=== PATIENT | female | born 1970 | race Caucasian/White ===

== ENCOUNTER 2018-05-25 09:48 | Outpatient (CLI) | payer BC, SELFPAY ==
--- NOTE | 2018-05-25 09:54 | DI.RAD_ITS ---
SYMPTOMS/DIAGNOSIS: COUGH X 3 WKS, UPPER RESPIRATORY INFECTION, J06.9 PA AND LATERAL CHEST: Comparison 05/19/17. The heart is normal in size. The lungs are clear. The mediastinal structures and pleura appear intact. CONCLUSION: Normal chest.
== END 2018-05-25 10:08 ==
PROVIDERS: PCP Nurse Practitioner; Visit Provider Family Medicine
DX: J06.9 Acute upper respiratory infection, unspecified (principal); R05 Cough
CPT/HCPCS: 71046

== ENCOUNTER 2018-05-25 09:55 | Outpatient (REF) | payer BC, SELFPAY | END 2018-05-25 10:15 | LOC: LBN 09:55 | PROVIDERS: PCP Nurse Practitioner; Visit Provider Nurse Practitioner | DX: J39.9 Disease of upper respiratory tract, unspecified (principal) | CPT/HCPCS: 87449 ==

== ENCOUNTER 2018-07-02 12:51 | Outpatient (CLI) | payer BC, SELFPAY ==
--- NOTE | 2018-07-02 10:00 | DI.RAD_ITS ---
SYMPTOM/DIAGNOSIS: SOB, COUGH, WHEEZE, R05, R06.2 PA AND LATERAL CHEST: Comparison is made with 05/25/18. The cardiac and mediastinal contours have a normal appearance. The lungs appear clear. No infiltrate, effusion or peribronchial thickening is seen. IMPRESSION: Negative chest xray.
== END 2018-07-02 13:11 ==
PROVIDERS: PCP Nurse Practitioner; Visit Provider Nurse Practitioner
DX: R06.02 Shortness of breath (principal); R05 Cough; R06.2 Wheezing
CPT/HCPCS: 71046

== ENCOUNTER 2018-11-12 00:59 | Outpatient (CLI) | payer BC, SELFPAY ==
--- NOTE | 2018-11-12 09:30 | DI.US_ITS ---
SYMPTOM/DIAGNOSIS: RUQ PAIN, R10.11 ABDOMEN ULTRASOUND: Routine examination was performed. The aorta is of normal caliber. The inferior vena cava is unremarkable. The liver is normal in size measuring 15 cm. in length. There is diffuse increased echogenicity of the liver consistent with fatty infiltration. No hepatic mass is seen. The gallbladder is unremarkable. There is no biliary ductal dilatation. The common duct measures .5 cm. The pancreas, spleen and kidneys show no acute abnormality. IMPRESSION: 1. Hepatic steatosis. 2. No evidence of cholelithiasis or biliary ductal dilatation.
[2018-11-12 10:40] LABS: Hemoglobin A1C 5.7 % (4.5-6.2)
[2018-11-12 11:13] LABS: ALT 36 U/L (12-78); AST 20 U/L (15-37); Albumin 3.9 g/dL (3.4-5.0); Alkaline Phosphatase 104 U/L (46-116); Anion Gap 12.5 mmol/L (3-11); BUN 11 mg/dL (7-18); Bilirubin, Total 0.3 mg/dL (0.2-1.0); CO2 25.5 mmol/L (21.0-32.0); CREATININE 0.77 mg/dL (0.55-1.02); Calcium 9.2 mg/dL (8.5-10.1); Calculated LDL 153 mg/dL; Chloride 103 mmol/L (98-107); Cholesterol 235 mg/dL (50-200); Glucose 102 mg/dL (70-100); HDL Cholesterol 57 mg/dL (40-60); Potassium 4.4 mmol/L (3.5-5.1); Sodium 141 mmol/L (136-145); Total Protein 7.4 g/dL (6.4-8.2); Triglyceride 128 mg/dL (30-150)
== END 2018-11-12 01:19 ==
PROVIDERS: PCP Nurse Practitioner; Visit Provider Nurse Practitioner
DX: R10.11 Right upper quadrant pain (principal); E66.9 Obesity, unspecified; R73.01 Impaired fasting glucose; K76.0 Fatty (change of) liver, not elsewhere classified
CPT/HCPCS: 36415; 80053; 80061; 83721; 76700; 83036

== ENCOUNTER 2019-02-15 01:07 | Outpatient (CLI) | payer BC, SELFPAY ==
--- NOTE | 2019-02-15 09:30 | DI.US_ITS ---
APPROVED REPORT EXAM: Comprehensive 2D, Doppler, and color-flow Echocardiogram Patient Location: Out-Patient Indications: SOB, Trigeminy, Arrhythmia Left Ventricle The left ventricle is normal size. The left ventricular systolic function is normal. The left ventric ular ejection fraction is within the normal range. There is normal left ventricular wall thickness. T here is normal LV segmental wall motion. The left ventricular diastolic function is normal. LVEF is 5 0-55%. Right Ventricle The right ventricle is normal size. The right ventricular systolic function is normal. Atria The left atrium size is normal. The right atrium size is normal. Aortic Valve Aortic valve is grossly normal in structure. Aortic valve is trileaflet. There is no aortic valvular stenosis. No aortic regurgitation is present. Mitral Valve The mitral valve is normal in structure. No evidence of mitral valve stenosis. Trace mitral regurgita tion. Tricuspid Valve The tricuspid valve is normal in structure. Mild tricuspid regurgitation. Pulmonic Valve Pulmonic valve is not well visualized. Trace pulmonic regurgitation. Great Vessels The aortic root is normal in size. The IVC is normal in size and collapses >50% with inspiration. RVS P is within normal limits Pericardium There is no pericardial effusion. There is no pleural effusion. 2D Dimensions IVSd 0.9 cm F: 0.6-1.0 PWd 0.9 cm F: 0.6 - 1.0 LVDd 4.1 cm F: 3.9 - 5.3 LVDs 3.1 cm F: 2.2 - 3.5 Aortic Root 3.0 cm F: 2.7 - 3.3 Left Atrium 3.0 cm F: 2.7 - 3.8 LVOT 2.0 cm (M/F) 1.5-2.5 Ascending Aorta 2.8 cm F: 2.3 - 3.1 LVEF (Jara's) 51.3 % F: 54 - 74 LV Volume 75.3 mL F: 46 - 106 LV Volume Index 41.3 mL/m2 F: 29 - 61 FS 23.4 % LV Diastology E Decel Time 178.0 (160-240 msec) E/A Ratio 1.3 MED E' 0.1 (<0.07 m/s) LV E/e MED 13.6 (>14) LAT E' 0.1 (<0.1 m/s) LV E/e LAT 7.1 (>14) Aortic Valve LVOT Area 3.0 cm2 LVOT Peak Celso. 1.0 m/s LVOT Mean Celso. 0.6 m/s LVOT Peak Gr. 4.0 mmHg LVOT Mean Gr. 2.0 mmHg LVOT VTI 0.2 m AoV Peak Celso. 1.4 (0.5-1.3 m/s) AoV Mean Celso. 0.9 m/s AO Peak GR. 7.4 mmHg AO Mean GR. 3.8 (<5 mmHg) AO VTI 0.3 (0.18-0.25 m) LEIDY (VTI) 2.3 (2.5-4.5 cm2) Mitral Valve MV E Max Celso. 0.9 (0.4-1.3 m/s) MV A Velocity 0.7 (0.4-1.3 m/s) E/A Ratio 1.4 MV Decel. Time 178.2 (160-240 msec) MV PHT 51.7 msec MVA PHT 4.3 cm2 Pulmonary Valve PV Peak Velocity 0.8 (0.5-1.5 m/s) Tricuspid Valve TR P. Velocity 2.4 m/s TR P. Gradient 22.6 mmHg Conclusion Left Ventricle : The left ventricle is normal size. There is normal left ventricular wall thickness. There is normal LV segmental wall motion. LVEF is 50-55%. There is normal diastolic function. Right Ventricle : The right ventricle is normal size. Atria : The left atrium size is normal. The right atrium size is normal. Aortic Valve : Aortic valve is grossly normal in structure. Aortic valve is trileaflet. No aortic reg urgitation is present. There is no aortic valvular stenosis. Mitral Valve : The mitral valve is normal in structure. Trace mitral regurgitation. No evidence of mi tral valve stenosis. Tricuspid Valve : Mild tricuspid regurgitation. The tricuspid valve is normal in structure. Pulmonic Valve : Pulmonic valve is not well visualized. Trace pulmonic regurgitation. Great Vessels : The IVC is normal in size and collapses >50% with inspiration. There is no prior echo available for comparison
== END 2019-02-15 01:27 ==
PROVIDERS: PCP Nurse Practitioner; Visit Provider Nurse Practitioner
DX: R06.02 Shortness of breath (principal); I49.9 Cardiac arrhythmia, unspecified; R00.2 Palpitations
CPT/HCPCS: 93306

== ENCOUNTER 2019-11-10 01:47 | Outpatient (CLI) | payer SELFPAY ==
--- NOTE | 2019-11-10 07:45 | DI.RAD_ITS ---
EXAM: XR KNEE RT 4V AP,LAT,LAUREN,PAT CLINICAL HISTORY: Right knee pain for 1.5 weeks. No injury., M25.561. TECHNIQUE: 2D digital imaging was performed. COMPARISON: No exams were available for comparison FINDINGS: BONES: No acute fracture is present. No bony destructive lesion is seen. JOINTS: There is mild narrowing of the patellofemoral joint. There is mild periarticular spurring, g reatest at the lateral patellofemoral joint. No joint effusion is seen. SOFT TISSUE: Normal. IMPRESSION: Mild degenerative changes, greatest of the lateral patellofemoral joint.. DATA REPOSITORY: RADIATION DOSE DELIVERED:
== END 2019-11-10 02:07 ==
PROVIDERS: PCP Nurse Practitioner; Visit Provider Nurse Practitioner
DX: M25.561 Pain in right knee (principal); M22.2X1 Patellofemoral disorders, right knee
CPT/HCPCS: 73564

== ENCOUNTER 2019-11-18 11:28 | Outpatient (REF) | payer SELFPAY ==
--- NOTE | 2019-11-18 11:00 | PAPFT_PTH ---
PATIENT: Layla Ramirez LOC: [facility] U#:[id number] AGE/SX: 49/F ROOM: RE11/18/[address]: RENÉ Herrera : 1970 BED: DIS: 11/18/2019 SPEC #: [id number] RECD: 11/18/19 12:38 STATUS: ABAD REJia #: [id number] SHEA: 11/18/19 11:[address]: Ambika Marte DEPT: [facility] Cytology RECD BY: Ketty Berry ENTERED: 11/18/19 12:38 SP TYPE: PAPFT OT DR: Cayla Oliva APRN Tissues: 1 - CX/ENDOCX FOR PAP SMEARS Procedures: PAP THIN PREP/UVM Screening HPV DNA PROBE Comments: [id number]
== END 2019-11-18 11:48 ==
LOC: LBN 11:28
PROVIDERS: PCP Nurse Practitioner; Visit Provider Nurse Practitioner Family
DX: Z12.4 Encounter for screening for malignant neoplasm of cervix (principal); Z11.51 Encounter for screening for human papillomavirus (HPV)
CPT/HCPCS: 88142; 87624

== ENCOUNTER 2023-02-17 11:47 | Outpatient (REF) | payer MEDICAID, SELFPAY ==
--- NOTE | 2023-02-17 11:25 | PAPFT_PTH ---
PATIENT: Layla Ramirez LOC: [facility] U#:[id number] AGE/SX: 52/F ROOM: RE02/17/[address]: Emmie Chris NP : 1970 BED: DIS: 02/17/2023 SPEC #: [id number] RECD: 02/17/23 13:01 STATUS: ABAD REJia #: [id number] SHEA: 02/17/23 11:[address]: Aries DOUGLAS,Emmie DEPT: [facility] Cytology RECD BY: Ketty Berry ENTERED: 02/17/23 13:01 SP TYPE: PAPFT OT DR: Unknown,Unknown Tissues: 1 - CX/ENDOCX FOR PAP SMEARS Procedures: PAP THIN PREP/UVM Screening HPV DNA PROBE Comments: [id number]
== END 2023-02-17 11:48 | disposition home or self-care (01) ==
LOC: LBN 11:47
PROVIDERS: Visit Provider Nurse Practitioner Women's Health
DX: Z12.4 Encounter for screening for malignant neoplasm of cervix (principal); Z11.51 Encounter for screening for human papillomavirus (HPV)
CPT/HCPCS: 88142; 87624

== ENCOUNTER → 2023-03-05 12:23 | Outpatient (CLI) | payer MEDICAID, SELFPAY ==
--- NOTE | 2023-03-05 13:00 | DI.MAMMO_ITS ---
Exam(s) MAMMO SCREENING EXAM: MAMMO SCREENING CLINICAL HISTORY: screening TECHNIQUE: Mammograms were interpreted according to the usual protocol including computer analysis w [employer] CAD system, tomosynthesis and C-view imaging. COMPARISON: 2013 through 2016 FINDINGS: The breasts are composed of mainly fatty density , Breast Density category A. No suspicious masses or suspicious microcalcifications are seen. No skin thickening or abnormal axillary lymph nodes are seen. There has been no significant change from prior exams. IMPRESSION: BI-RADS Category 1, Negative mammogram Yearly screening mammography is recommended. Breast Density - Category A, fatty density. A negative radiographic report should not delay biopsy if a dominant or clinically suspicious mass is present. Up to ten percent of cancers are not identified on mammography. A negative report may reinforce clinical impression. Adenosis and dense breasts may obscure an underlying neoplasm. False positive reports average 6 to 10%. Patient will receive a letter notifying them of these results.
== END ==
PROVIDERS: Visit Provider Nurse Practitioner Women's Health
DX: Z12.31 Encounter for screening mammogram for malignant neoplasm of breast (principal); R92.313 Mammographic fatty tissue density, bilateral breasts
CPT/HCPCS: 77063; 77067

== ENCOUNTER 2023-05-15 03:23 | Outpatient (CLI) | payer MEDICAID, SELFPAY ==
[2023-05-15 09:55] LABS: Hemoglobin A1C 5.5 % (<5.7)
[2023-05-15 10:04] LABS: ALT 40 U/L (14-59); AST 20 U/L (15-37); Albumin 3.8 g/dL (3.4-5.0); Alkaline Phosphatase 88 U/L (46-116); Anion Gap 6.5 mmol/L (3-11); BUN 14 mg/dL (7-18); Bilirubin, Total 0.5 mg/dL (0.2-1.0); CO2 29.5 mmol/L (21.0-32.0); CREATININE 0.9 mg/dL (0.55-1.02); Calcium 9.5 mg/dL (8.5-10.1); Calculated LDL 142 mg/dL (<100); Chloride 103 mmol/L (98-107); Cholesterol 223 mg/dL (<200); Glucose 113 mg/dL (74-106); HDL Cholesterol 58 mg/dL (40-60); Potassium 3.9 mmol/L (3.5-5.1); Sodium 139 mmol/L (136-145); TSH (W/Ref FT4) 2.31 uIU/mL (0.36-3.74); Total Protein 7.8 g/dL (6.4-8.2); Triglyceride 119 mg/dL (<150)
== END 2023-05-15 03:24 | disposition home or self-care (01) ==
LOC: LBO 03:23
PROVIDERS: PCP Nurse Practitioner Family; Visit Provider Nurse Practitioner Family
DX: Z76.89 Persons encountering health services in other specified circumstances (principal)
CPT/HCPCS: 36415; 80053; 80061; 83036; 84443

== ENCOUNTER 2024-03-18 01:09 | Outpatient (CLI) | payer MEDICAID, SELFPAY ==
--- NOTE | 2024-03-18 | DI.MAMMO_ITS ---
Exam(s) MAMMO SCREENING EXAM: MAMMO SCREENING CLINICAL HISTORY: SCREENING, Z12.39 TECHNIQUE: Mammograms were interpreted according to the usual protocol including computer analysis w [employer] CAD system, tomosynthesis and C-view imaging. COMPARISON: 2016 through 2022 FINDINGS: The breasts are composed of mainly fatty density , Breast Density category A. No suspicious masses or suspicious microcalcifications are seen. No skin thickening or abnormal axillary lymph nodes are seen. There has been no significant change from prior exams. IMPRESSION: BI-RADS Category 1, Negative mammogram Yearly screening mammography is recommended. Breast Density - Category A, fatty density. A negative radiographic report should not delay biopsy if a dominant or clinically suspicious mass is present. Up to ten percent of cancers are not identified on mammography. A negative report may reinforce clinical impression. Adenosis and dense breasts may obscure an underlying neoplasm. False positive reports average 6 to 10%. Patient will receive a letter notifying them of these results.
== END 2024-03-18 01:29 ==
LOC: DI 01:09
PROVIDERS: PCP Nurse Practitioner Family; Visit Provider Nurse Practitioner Women's Health
DX: Z12.31 Encounter for screening mammogram for malignant neoplasm of breast (principal); R92.313 Mammographic fatty tissue density, bilateral breasts
CPT/HCPCS: 77063; 77067; 87070; 87205

== ENCOUNTER 2024-03-18 22:30 | Outpatient (REF) | payer MEDICAID, SELFPAY | END 2024-03-18 22:31 | disposition home or self-care (01) | LOC: LBN 22:30 | PROVIDERS: PCP Nurse Practitioner Family; Visit Provider Physician Assistant Medical | DX: L02.416 Cutaneous abscess of left lower limb (principal) | CPT/HCPCS: 87070; 87205 ==

== ENCOUNTER 2024-04-20 06:06 | Day surgery (SDC) | payer MEDICAID, SELFPAY ==
[2024-04-20 06:15] VITALS: BP 131/80; PULSE 87; RESP 17; TEMP 36.7; O2SAT 95
--- NOTE | 2024-04-20 06:54 | ANES.PREOP_ITS ---
General Info Date of Service Date Performed: 04/20/24 Height: 4 ft 11.5 in Weight: 91.7 kg Body Mass Index (BMI): 40.1 Surgical Procedure: Operation Date: 04/20/24 07:40 Proposed Procedure Side Surgeon p Wrist ECTR Left Darin Laurent MD Meds Allergies and Home Medications Allergies Allergy/AdvReac Type Severity Reaction Status Date / Time latex Allergy Severe Swelling/Ed Verified 04/20/24 06:37 erasto mirtazapine AdvReac Intermediate Pt not sure Verified 04/20/24 06:37 tetracycline AdvReac Intermediate GI Upset Verified 04/20/24 06:37 Home Medication ?Medication ?Instructions ?Recorded multivitamin (Daily Multiple 1 ea PO DAILY 07/11/16 tablet) cholecalciferol (vitamin D3) 10 See Rx Instructions PO DAILY 07/10/18 mcg (400 unit) capsule (Vitamin D3) sodium chloride 3 % nasal mist 1 spray intranasal DAILY 08/23/21 (Saline Nasal Mist) [id number]-[id number] C 250 1 tab PO DIRECTED 02/17/23 mg-herbal no.124 8.875 mg chewable tablet (Airborne (ascorbic acid)) albuterol sulfate 90 mcg/actuation 2 puff inhalation Q6H PRN 03/06/23 aerosol inhaler shortness of breath or wheezing #6.7 grams inhalational spacing device #1 ea 03/06/23 (Aerochamber MV spacer) phentermine 3.75 mg-topiramate ER 1 cap PO DAILY #14 caps 07/07/23 23 mg capsule,ext.release 24hr mphas phentermine 7.5 mg-topiramate ER 1 cap PO DAILY #90 caps 07/07/23 46 mg capsule,ext.release 24hr mphase fluticasone propionate 50 2 spray NS DAILY #18.2 mL 07/09/23 mcg/actuation nasal spray,suspension (Flonase Allergy Relief) loratadine 10 mg tablet 10 mg PO DAILY #90 tabs 07/09/23 valacyclovir 1 gram tablet 2,000 mg (2 x 1 gram) PO BID #20 07/09/23 tabs betamethasone dipropionate 0.05 % 1 applic topical DAILY PRN skin 12/31/23 topical cream irritation #45 grams cyclobenzaprine 5 mg tablet 5 - 10 mg (1 - 2 x 5 mg) PO TID 03/05/24 PRN pain #60 tabs triamcinolone acetonide 0.1 % 1 applic topical BID PRN eczema 03/09/24 topical cream hands #454 grams Current Visit Medications: Current Medications Generic Name Dose Route Start Last Admin Trade Name Robinson PRN Reason Stop Dose Admin Cefazolin Sodium/Dextrose 2 gm in 50 mls @ 100 mls/hr 04/20/24 06:00 Ancef Duplex IVPB 05/19/24 23:59 PREOP MARSHALL IV Miscellaneous Supplies 1 each 04/20/24 06:00 Iv Access IV 05/19/24 23:59 DIRECTED MARSHALL Sodium Chloride 0 ml 04/20/24 06:00 Normal Saline Flush 10 Ml Syr IV 05/19/24 23:59 PRN PRN Sodium Chloride 0 ml 04/20/24 06:00 Normal Saline 10 Ml Vial IJ 05/19/24 23:59 DIRECTED PRN Sterile Water 0 ml 04/20/24 06:00 Water,Injection,Sterile 10 Ml Vial IJ 05/19/24 23:59 DIRECTED PRN PFSH Active Problems Active Problems: Problem Status Onset Code Left carpal tunnel syndrome Acute G56.02 Hyperlipidemia Chronic E78.5 Bilateral carpal tunnel syndrome Chronic G56.03 Allergic rhinitis Chronic J30.9 Chronic sinusitis Chronic J32.9 Atopic dermatitis Chronic L20.9 Obesity (BMI 30-39.9) Chronic E66.9 Medical History Medical History Prediabetes Premature menopause 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[facility] [place] Surgical History Surgical History History of carpal tunnel surgery of right wrist (~2020) S/P appendectomy (12/06/15) Tobacco Smoking/Tobacco Use Status: Never Passive smoking exposure: No Alcohol Alcohol Intake: current Alcohol intake frequency: a few times a month Alcohol type: beer and wine Substance Use Substance use: Never Substance use type: does not use Prental History History Para 2 Hx # Term Pregnancies Multiple births Hx # Pregnancies Ectopic pregnancies AB induced Hx Number of Living Children AB spontaneous Vital Signs and Lab Results Vital Signs Most Recent Vital Signs in EMR: Most Recent Vital Signs Temp Pulse Resp BP Pulse Ox 36.7 C 87 17 131/80 95 04/20/24 06:15 04/20/24 06:15 04/20/24 06:15 04/20/24 06:15 04/20/24 06:15 Lab Results Blood Type / Crossmatch: 2 No Data to Display Complete Blood Count: No Data to Display Complete Metabolic Panel: No Data to Display Liver Function Panel: No Data to Display Coagulation Panel: No Data to Display Cardiac Panel: No Data to Display Arterial Blood Gas: No Data to Display Venous Blood Gas: No Data to Display Pancreas Panel: No Data to Display Thyroid Panel: No Data to Display Infectious Disease: No Data to Display Blood Cultures: No Data to Display Toxicology Panel: No Data to Display Panel: No Data to Display Anesthesia Assessment and Plan Anesthesia History Personal History: No History of Anesthesia Complications Family History: No Family History of Anesthesia Complications Exercise Tolerance Exercise Tolerance: Metabolic Equivalents>4 Pertinent Negatives Pertinent Negatives: No Symptoms of GERD Cardiac & Pulmonary Exam Cardiac Exam: Normal S1/S2 Heart Sounds Pulmonary Exam: Clear Bilateral Breath Sounds Implantable Cardiac Device Does patient have a Pacemaker or an ICD?: No Airway Exam Known Difficult Airway: No Mallampati Class: 3 Mouth Opening: Normal (> 3cm) Thyromental Distance: Greater than 3 cm Neck Range of Motion: Full ROM Neck Circumference: Thick Teeth Condition: Normal Dentition ASA Classification ASA Score: ASA 2 Emergency Case?: No NPO Status NPO Status: NPO Clears >2 hours, Solids >8 hours Status Status: Not Relevant due to Medical History Anesthesia Plan Resuscitation Status: Full Code Anesthesia Technique: General Anesthesia Airway Planned: Natural Airway Monitors Used: Standard Monitors
[2024-04-20 06:55] VITALS: BMI 40.1
[2024-04-20] MEDS: Normal Saline Flush 10 ML SYR IV (07:10)
--- NOTE | 2024-04-20 07:15 | HPE_ITS ---
Assessment and Plan Assessment and plan (1) Left carpal tunnel syndrome: Status: Acute Assessment and plan: Layla is a 53-year-old female who is here today for her left carpal tunnel syndrome. I discussed the risks of the procedure to include, but not limited to, bleeding, infection, palmar pain, stiffness, damage to nerves, damage to vessels, damage to tendons, weakness, recurrence, and incomplete release. Given these risks, Layla desires to proceed. Once again, we will monitor swelling in her fingers closely. I reviewed with her signs and symptoms of increasing congestion about the fingers from the rings. If there is any concern all these rings need to be cut immediately and the emergency department. I did offer to cut those rings today but she prefers to watch the symptoms after surgery rather than remove the rings today. History of Present Illness History of Present Illness Chief Complaint: Left Carpal Tunnel Syndrome Narra tive: Layla is a 53-year-old female who has carpal tunnel syndrome about the left side. She is status post right carpal tunnel release with good results. She continues have numbness and tingling and pain about the left side. She denies any changes to her medical history. As a note, she is unable to remove rings from her left hand. These are quite sentimental to her. There is room around the rings but multiple attempts were tried to remove these rings today but unsuccessful. I discussed options with her of cutting the rings now or being very vigilant and observe for any signs of increased swelling within the digits. Review of Systems All systems reviewed & are unremarkable except as noted in HPI and below PFSH All Active Problems Left carpal tunnel syndrome (Acute) Hyperlipidemia (Chronic) Bilateral carpal tunnel syndrome (Chronic) Allergic rhinitis (Chronic) Chronic sinusitis (Chronic) Atopic dermatitis (Chronic) Obesity (BMI 30-39.9) (Chronic) Medical History Prediabetes Premature menopause 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[facility] [place] Insomnia Surgical History History of carpal tunnel surgery of right wrist (~2020) S/P appendectomy (12/06/15) Family History Mother Asthma Father , 77 from lung cancer COPD (chronic obstructive pulmonary disease) Lung cancer Sister Asthma Sister No problems noted. Brother Asthma Son No problems noted. Daughter No problems noted. Maternal Grandfather No problems noted. Maternal Grandmother No problems noted. Paternal Grandfather No problems noted. Paternal Grandmother Diabetes Social History Smoking/Tobacco Use Status: Never Smoking risk assessment performed?: Yes Alcohol Intake: current Alcohol Intake frequency: a few times a month Alcohol type: beer and wine Drug use: Never Substance use type: does not use Adopted: No Caregiver/Support person: No Foster care: No Household members: spouse Housing: house Number of Children: 2 number of grandchildren: 5 Communication Needs: None Education Level: high school current occupation: homemaker Pets and animals: No Sexually active: Yes Do you think of yourself as: straight/heterosexual Current gender identity: female What is your relationship status?: How often do you attend synagogue or presybeterian services?: 1-3 times per year Do you belong to any clubs or organized social groups?: no Panel score (0-1 are the most socially isolated patients): 1 What type of physical activity do you participate in: regular exercise, swimming and other Details: volleyball Duration: > 90 minutes/day Frequency: 1-2 times per week Tiffanie/Tenriism: Non baptism Special tiffanie needs: No Agree to transfusion: Yes Seatbelt use: always Drive intox or ride w/intox motorcycle delivery driver: No Working smoke detector in home: Yes Carbon monox detector in home: Yes Firearms in home: No Do you feel safe at home: Yes Do you feel safe in your relationship?: Yes Victim of physical abuse: No Victim of emotional abuse: No Victim of sexual abuse: No Female Reproductive History Menstrual Menopause type: natural History History Para 2 Hx # Term Pregnancies Multiple births Hx # Pregnancies Ectopic pregnancies AB induced Hx Number of Living Children AB spontaneous Meds Allergies and Home Medications Allergies Allergy/AdvReac Type Severity Reaction Status Date / Time latex Allergy Severe Swelling/Ed Verified 04/20/24 06:37 erasto mirtazapine AdvReac Intermediate Pt not sure Verified 04/20/24 06:37 tetracycline AdvReac Intermediate GI Upset Verified 04/20/24 06:37 Home Medications ?Medication ?Instructions ?Recorded ?Confirmed ?Type multivitamin (Daily Multiple 1 ea PO DAILY 07/11/16 04/20/24 History tablet) cholecalciferol (vitamin D3) 10 See Rx Instructions PO DAILY 07/10/18 04/20/24 History mcg (400 unit) capsule (Vitamin D3) sodium chloride 3 % nasal mist 1 spray intranasal DAILY 08/23/21 04/20/24 History (Saline Nasal Mist) wygiypwn-pawnwnha-ejz C 250 1 tab PO DIRECTED 02/17/23 04/20/24 History mg-herbal no.124 8.875 mg chewable tablet (Airborne (ascorbic acid)) albuterol sulfate 90 mcg/actuation 2 puff inhalation Q6H PRN 03/06/23 04/20/24 Rx aerosol inhaler shortness of breath or wheezing #6.7 grams inhalational spacing device #1 ea 03/06/23 03/09/24 Rx (Aerochamber MV spacer) phentermine 3.75 mg-topiramate ER 1 cap PO DAILY #14 caps 07/07/23 04/20/24 Rx 23 mg capsule,ext.release 24hr mphas phentermine 7.5 mg-topiramate ER 1 cap PO DAILY #90 caps 07/07/23 04/20/24 Rx 46 mg capsule,ext.release 24hr mphase fluticasone propionate 50 2 spray NS DAILY #18.2 mL 07/09/23 04/20/24 Rx mcg/actuation nasal spray,suspension (Flonase Allergy Relief) loratadine 10 mg tablet 10 mg PO DAILY #90 tabs 07/09/23 04/20/24 Rx valacyclovir 1 gram tablet 2,000 mg (2 x 1 gram) PO BID #20 07/09/23 04/20/24 Rx tabs betamethasone dipropionate 0.05 % 1 applic topical DAILY PRN skin 12/31/23 04/20/24 Rx topical cream irritation #45 grams cyclobenzaprine 5 mg tablet 5 - 10 mg (1 - 2 x 5 mg) PO TID 03/05/24 04/20/24 Rx PRN pain #60 tabs triamcinolone acetonide 0.1 % 1 applic topical BID PRN eczema 03/09/24 04/20/24 Rx topical cream hands #454 grams hydrocodone 5 mg-acetaminophen 325 1 tab PO Q6H PRN severe pain #4 04/20/24 Rx mg tablet tabs Exam Const General: cooperative, healthy appearing, comfortable and no acute distress Resp Effort & Inspection: normal respiratory effort Auscultation: clear to auscultation bilaterally Cardio Rate: regular rate Rhythm: regular rhythm Results Last Vital Signs Temp 36.7 C 04/20/24 06:15 Pulse 87 04/20/24 06:15 Resp 17 04/20/24 06:15 BP 131/80 04/20/24 06:15 Pulse Ox 95 04/20/24 06:15
--- NOTE | 2024-04-20 07:16 | PDOC.DSDIS_ITS ---
Date of service: 04/20/24 Discharge Plan Disposition Patient Disposition: Home Condition: Good Discharge Details Reason For Visit: Left carpal tunnel syndrome Attending Provider: Darin Laurent Primary Care Provider: Liliane Castellanos Home Meds and New Rx's Prescriptions: New hydrocodone-acetaminophen 5-325 mg tablet 1 tab PO Q6H PRN (Reason: severe pain) Qty: 4 0RF Rx Instructions: Take one tablet up to every 6 hours as needed for severe postoperative pain Continued Saline Nasal Mist 3 % mist 1 spray intranasal DAILY Airborne (ascorbic acid) 250-8.875 mg tablet,chewable 1 tab PO DIRECTED albuterol sulfate 90 mcg/actuation HFA aerosol inhaler 2 puff inhalation Q6H PRN (Reason: shortness of breath or wheezing) Qty: 6.7 0RF (DME) Aerochamber MV Spacer See Rx Instructions .Route Qty: 1 0RF Rx Instructions: As directed phentermine-topiramate 3.75-23 mg capsule, ER multiphase 24 hr 1 cap PO DAILY Qty: 14 0RF Patient Comments: Has not started this Rx yet 04/19/24 Rx Instructions: 1 pill daily for 14 days then switch to the higher dose phentermine-topiramate 7.5-46 mg capsule, ER multiphase 24 hr 1 cap PO DAILY Qty: 90 0RF Patient Comments: Has not started this RX yet 04/19/24 betamethasone dipropionate 0.05 % cream 1 applic topical DAILY PRN (Reason: skin irritation) Qty: 45 0RF triamcinolone acetonide 0.1 % cream 1 applic Topical BID PRN (Reason: eczema hands) Qty: 454 1RF cyclobenzaprine 5 mg tablet 5 - 10 mg PO TID PRN (Reason: pain) Qty: 60 0RF Rx Instructions: Take 1 to 2 tablets by mouth three times a day as needed for pain multivitamin [Daily Multiple] 1 EACH tablet 1 ea PO DAILY cholecalciferol (vitamin D3) [Vitamin D3] 400 unit capsule See Rx Instructions PO DAILY Patient Comments: 1,000mg PO DAILY; Rx Instructions: 1,000mg PO DAILY; fluticasone propionate [Flonase Allergy Relief] 50 mcg/actuation spray,suspension 2 spray NS DAILY Qty: 18.2 12RF loratadine 10 mg tablet 10 mg PO DAILY Qty: 90 3RF valacyclovir 1 gram tablet 2,000 mg PO BID Qty: 20 2RF Rx Instructions: 2 tabs BID for one day, PRN for cold sores Discharge Instructions Stand Alone Forms: Mehran Bagley Tunnel Release Referrals: Darin Laurent MD [ [facility] STAFF PHYSICIAN] - Activity:: Elevate Remove Dressings/Wound Care:: 48 hours Shower/Bathe:: 48 hours Diet:: As Tolerated Discharge Orders Discharge Orders: Discharge Order (Routine); Ordered 04/20/24 Ordered By: Mell Yuen
[2024-04-20] MEDS: ceFAZolin 2 GM/50 ML BAG IVPB (07:29)
[2024-04-20 07:45] VITALS: BP 119/79; PULSE 96; RESP 17; TEMP 36; O2SAT 93
[2024-04-20] MEDS: Lidocaine 1% Multi-Dose W/EPI 1/100,000 50 ML VIAL (07:51)
--- NOTE | 2024-04-20 07:59 | ANES.PREOP_ITS ---
General Info Date of Service Date Performed: 04/20/24 Height: 4 ft 11.5 in Weight: 91.7 kg Body Mass Index (BMI): 40.1 Surgical Procedure: Operation Date: 04/20/24 07:40 Proposed Procedure Side Surgeon p Wrist ECTR Left Darin Laurent MD Meds Allergies and Home Medications Allergies Allergy/AdvReac Type Severity Reaction Status Date / Time latex Allergy Severe Swelling/Ed Verified 04/20/24 06:37 erasto mirtazapine AdvReac Intermediate Pt not sure Verified 04/20/24 06:37 tetracycline AdvReac Intermediate GI Upset Verified 04/20/24 06:37 Home Medication ?Medication ?Instructions ?Recorded multivitamin (Daily Multiple 1 ea PO DAILY 07/11/16 tablet) cholecalciferol (vitamin D3) 10 See Rx Instructions PO DAILY 07/10/18 mcg (400 unit) capsule (Vitamin D3) sodium chloride 3 % nasal mist 1 spray intranasal DAILY 08/23/21 (Saline Nasal Mist) [id number] C 250 1 tab PO DIRECTED 02/17/23 mg-herbal no.124 8.875 mg chewable tablet (Airborne (ascorbic acid)) albuterol sulfate 90 mcg/actuation 2 puff inhalation Q6H PRN 03/06/23 aerosol inhaler shortness of breath or wheezing #6.7 grams inhalational spacing device #1 ea 03/06/23 (Aerochamber MV spacer) phentermine 3.75 mg-topiramate ER 1 cap PO DAILY #14 caps 07/07/23 23 mg capsule,ext.release 24hr mphas phentermine 7.5 mg-topiramate ER 1 cap PO DAILY #90 caps 07/07/23 46 mg capsule,ext.release 24hr mphase fluticasone propionate 50 2 spray NS DAILY #18.2 mL 07/09/23 mcg/actuation nasal spray,suspension (Flonase Allergy Relief) loratadine 10 mg tablet 10 mg PO DAILY #90 tabs 07/09/23 valacyclovir 1 gram tablet 2,000 mg (2 x 1 gram) PO BID #20 07/09/23 tabs betamethasone dipropionate 0.05 % 1 applic topical DAILY PRN skin 12/31/23 topical cream irritation #45 grams cyclobenzaprine 5 mg tablet 5 - 10 mg (1 - 2 x 5 mg) PO TID 03/05/24 PRN pain #60 tabs triamcinolone acetonide 0.1 % 1 applic topical BID PRN eczema 03/09/24 topical cream hands #454 grams hydrocodone 5 mg-acetaminophen 325 1 tab PO Q6H PRN severe pain #4 04/20/24 mg tablet tabs Current Visit Medications: Current Medications Generic Name Dose Route Start Last Admin Trade Name Freq PRN Reason Stop Dose Admin Acetaminophen 650 mg 04/20/24 07:14 Acetaminophen 325 Mg Tab PO 05/20/24 07:13 Q4H PRN PRN Acetaminophen 650 mg 04/20/24 07:15 Acetaminophen 325 Mg Tab PO 05/20/24 07:14 Q4H PRN PRN Hydrocodone Bitart/Acetaminophen 0 tab 04/20/24 07:14 Hydrocodone 5/Acetaminophen 325 Tab PO 05/20/24 07:13 Q3H PRN PRN Pain Hydrocodone Bitart/Acetaminophen 0 tab 04/20/24 07:15 Hydrocodone 5/Acetaminophen 325 Tab PO 05/20/24 07:14 Q3H PRN PRN Pain Cefazolin Sodium/Dextrose 2 gm in 50 mls @ 100 mls/hr 04/20/24 06:00 04/20/24 07:40 Ancef Duplex IVPB 05/19/24 23:59 Infused PREOP MARSHALL Infusion IV Miscellaneous Supplies 1 each 04/20/24 06:00 Iv Access IV 05/19/24 23:59 DIRECTED MARSHALL Sodium Chloride 0 ml 04/20/24 06:00 04/20/24 07:10 Normal Saline Flush 10 Ml Syr IV 05/19/24 23:59 10 ml PRN PRN Administration Sodium Chloride 0 ml 04/20/24 06:00 Normal Saline 10 Ml Vial IJ 05/19/24 23:59 DIRECTED PRN Sterile Water 0 ml 04/20/24 06:00 Water,Injection,Sterile 10 Ml Vial IJ 05/19/24 23:59 DIRECTED PRN PFSH Active Problems Active Problems: Problem Status Onset Code Left carpal tunnel syndrome Acute G56.02 Hyperlipidemia Chronic E78.5 Bilateral carpal tunnel syndrome Chronic G56.03 Allergic rhinitis Chronic J30.9 Chronic sinusitis Chronic J32.9 Atopic dermatitis Chronic L20.9 Obesity (BMI 30-39.9) Chronic E66.9 Medical History Medical History Prediabetes Premature menopause 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[facility] [place] Ortho Insomnia Surgical History Surgical History History of carpal tunnel surgery of right wrist (~2020) S/P appendectomy (12/06/15) Tobacco Smoking/Tobacco Use Status: Never Passive smoking exposure: No Alcohol Alcohol Intake: current Alcohol intake frequency: a few times a month Alcohol type: beer and wine Substance Use Substance use: Never Substance use type: does not use Prental History History Para 2 Hx # Term Pregnancies Multiple births Hx # Pregnancies Ectopic pregnancies AB induced Hx Number of Living Children AB spontaneous Vital Signs and Lab Results Vital Signs Most Recent Vital Signs in EMR: Most Recent Vital Signs Temp Pulse Resp BP Pulse Ox 36 C L 96 H 17 119/79 93 04/20/24 07:45 04/20/24 07:45 04/20/24 07:45 04/20/24 07:45 04/20/24 07:45 Lab Results Blood Type / Crossmatch: No Data to Display Complete Blood Count: No Data to Display Complete Metabolic Panel: No Data to Display Liver Function Panel: No Data to Display Coagulation Panel: No Data to Display Cardiac Panel: No Data to Display Arterial Blood Gas: No Data to Display Venous Blood Gas: No Data to Display Pancreas Panel: No Data to Display Thyroid Panel: No Data to Display Infectious Disease: No Data to Display Blood Cultures: No Data to Display Toxicology Panel: No Data to Display Panel: No Data to Display Anesthesia Assessment and Plan Anesthesia History Personal History: No History of Anesthesia Complications Family History: No Family History of Anesthesia Complications Exercise Tolerance Exercise Tolerance: Metabolic Equivalents>4 Pertinent Negatives Pertinent Negatives: No Symptoms of GERD Cardiac & Pulmonary Exam Cardiac Exam: Normal S1/S2 Heart Sounds Pulmonary Exam: Clear Bilateral Breath Sounds Implantable Cardiac Device Does patient have a Pacemaker or an ICD?: No Airway Exam Known Difficult Airway: No Mallampati Class: 3 Mouth Opening: Normal (> 3cm) Thyromental Distance: Greater than 3 cm Neck Range of Motion: Full ROM Neck Circumference: Thick Teeth Condition: Normal Dentition ASA Classification ASA Score: ASA 3 Emergency Case?: No NPO Status NPO Status: NPO Clears >2 hours, Solids >8 hours Status Status: Not Relevant due to Medical History Anesthesia Plan Resuscitation Status: Full Code Anesthesia Technique: Spinal Anesthesia Airway Planned: Natural Airway Pain Management: Surgeon and patient request nerve block Monitors Used: Standard Monitors
--- NOTE | 2024-04-20 08:02 | W.ANESPOSTOP ---
Postoperative Evaluation Date, Time and Location Date Performed: 04/20/24 Time Performed: 08:03 Patient Location: Med/Surg Vital Signs Most Recent Imported Vital Signs: Most Recent Vital Signs Temp Pulse Resp BP Pulse Ox 36 C L 96 H 17 119/79 93 04/20/24 07:45 04/20/24 07:45 04/20/24 07:45 04/20/24 07:45 04/20/24 07:45 Pain Score Most Recent Pain Score: Most Recent Pain Score Pain Level 0 04/20/24 07:45 Assessment Mental Status: Awake (Alert & Oriented to Patient Baseline) Airway and Respiratory Function: Patent airway with normal (patient baseline) respiratory exam Cardiovascular Function: Hemodynamically Stable Hydration Status: Adequately Hydrated Nausea & Vomiting: No Nausea or Vomiting Pain: Pt. Denies Any Pain Peripheral Nerve Block: Patient did not receive a nerve block
[2024-04-20 08:17] VITALS: BP 120/79; PULSE 96; RESP 17; TEMP 36; O2SAT 94
--- NOTE | 2024-04-20 09:00 | ROE_ITS ---
Operative Note Operative Note PRE-OP DIAGNOSIS: Left Carpal Tunnel Syndrome POST-OP DIAGNOSIS: same PROCEDURE: Left Endoscopic Carpal Tunnel Release SURGEON: Darin Laurent ANESTHESIA TYPE: General:No Airway Refer to Anesthesia Record ESTIMATED BLOOD LOSS: 0 PATHOLOGY: none sent TOURNIQUET TIME: 5 COMPLICATIONS: None Patient was transported to: same day Patient's condition: stable Indications: I have seen Layla in clinic for symptoms of carpal tunnel syndrome. The numbness, tingling, and pain limited function. Clinical exam findings confirmed the diagnosis of carpal tunnel syndrome. Nonoperative measures such as bracing, time, activity modifications had been tried but disability and pain persisted. I discussed carpal tunnel release with the patient. I reviewed the risks of the procedure to include, but not limited to, bleeding, infection, pain, stiffness, incomplete release, damage to nerves or vessels, persistent numbness, recurrence. Despite these risks, the patient elected to proceed. Findings: There was tightened carpal tunnel. This was dilated and released successfully with the endoscopic with increased space within the tunnel. The antebrachial fascia was released proximally freeing the median nerve at the wrist. Procedure Description: Layla was greeted in the preoperative holding area where the correct side was identified and marked. The consent was reviewed with the patient and signed. The history and physical was updated. All questions were answered. She was taken back to the operating room. The patient was placed into the supine position on the operating room table with the left arm on an arm board. A nonsterile tourniquet was placed high onto the arm. All bony prominences were well padded. Prophylactic antibiotics in the form of Cefazolin were administered. The left arm was then prepped with Chloraprep and draped in a standard fashion with stockinette and extremity drape. A timeout to confirm correct identity, side and site, procedure, allergies, anesthesia, and medical concerns was performed. The surgical site was marked in the volar wrist creases in line with the radial border of the fourth ray. This area was anesthetized with approximately 6cc of 1% Lidocaine. The limb was then exsanguinated with an Esmarch. The skin was incised with a 15 blade, approximately 1cm. The skin only was cut and the deeper tissue was dissected bluntly with a tenotomy scissor, avoiding passing nerve and venous structures. The fascia was penetrated and opened bluntly. A two-prong skin hook was placed under this proximal fascial edge. A series of hamate finders were used to identify and dilate the carpal tunnel. Synovial elevator was used to free synovial attachments to the underside of the transverse carpal ligament. My thumb was kept in the palm to yvette the distal extent of the carpal tunnel and correctly position the hand. The Microaire endoscope was inserted without difficulty and without resistance. Excellent visualization showed horizontally running fibers of the transverse carpal ligament (TCL). The distal extent of the TCL was visualized and the end of the scope palpated with the thumb. The blade was elevated and withdrawn from distal to proximal. The TCL was split into two flaps. The endoscope was re inserted to confirm complete release and any remnant ligament was incised. The scope was withdrawn and the proximal aspect of the carpal tunnel was grossly inspected and appeared release with the median nerve visible. The antebrachial fascia at the level of the wrist was then freed from the overlying skin and then the underlying median nerve with blunt dissection. This was transected longitudinally for about 3cm proximal to the wrist incision. The wound was then irrigated with easy flow of irrigant distally and proximally. The incision was closed with a single 4-0 Nylon suture. The wound was dressed with Xeroform, Gauze, Kerlix and Sterling. The tourniquet was deflated with the initial dressing and held with some pressure. Blood flow returned easily to all digits with capillary refill less than 2 seconds. The patient tolerated the procedure well and was returned to the Same Day Surgery area in a stable condition suffering no known complication. Date of Procedure: 04/20/24
--- NOTE | 2024-04-20 09:32 | W.ANESNERVE ---
Nerve Block Single Injection Procedure Date and Time Date Performed: 04/20/24 Procedure Start: 08:35 Location Where Procedure Performed Procedure Location: Day Surgery Unit Reason Performed: Postoperative Analgesia Requesting Provider: Darin Laurent Timeout Performed Timeout Performed: Yes Monitoring Used ECG, Blood Pressure, SpO2 and See EMR for corresponding vital signs Sterility Sterility: Hand Hygiene, Surgical Cap, Surgical Mask, Sterile Gloves, Eye Protection and Chlorhexidine Sedation Given During Procedure Sedation Given (Indicate Dose Given): Versed IV Dose:: 2mg Patient Mental Status Patient Mental Status: Sedate with meaningful communication Nerve Block 1st Nerve Block: Laterality: Right Block Type: Adductor Canal Ultrasound Image Saved?: Yes Needle / Catheter Used: 100mm SonoPlex II Local Anesthetic Bolus (Indicate Dose Given): Lidocaine used for local infiltration of skin and Ropivacaine 0.5% Dose:: 0.5%(25cc) / 125mg Additives (Indicate Dose Given): Decadron Dose:: 10mg PF Ultrasound: Sterile probe cover and gel used Nerve Stimulator: Not Used Paresthesia: None Procedure Tolerated: No Complications and Patient tolerated well Procedure Outcome: Successful Performed By: Todd Paz
== END 2024-04-20 08:45 | disposition home or self-care (01) ==
PROVIDERS: PCP Nurse Practitioner Family; Visit Provider Student in an Organized Health Care Education/Training Program
PROC: 01N54ZZ Release Median Nerve, Percutaneous Endoscopic Approach (ICD-10-PCS; CPT 29848; principal; 2024-04-20 07:30)
DX: G56.02 Carpal tunnel syndrome, left upper limb (principal)
CPT/HCPCS: 29848; J0690; J2004; J2250

== ENCOUNTER 2024-08-25 17:10 | Outpatient (REF) | payer OTHER, SELFPAY ==
[2024-08-26 10:44] LABS: Campylobacter PCR Negative (Negative); Salmonella PCR Negative (Negative); Shiga Toxin PCR Negative (Negative); Shigella/Enteroinvasive Ecoli Negative (Negative)
== END 2024-08-25 17:11 | disposition home or self-care (01) ==
LOC: LBN 17:10
PROVIDERS: PCP Nurse Practitioner Family; Visit Provider Physician Assistant Medical
DX: R19.7 Diarrhea, unspecified (principal)
CPT/HCPCS: 87505

== ENCOUNTER 2024-11-25 01:21 | Outpatient (CLI) | payer OTHER, SELFPAY ==
--- NOTE | 2024-11-25 08:00 | DI.DEXA_ITS ---
Exam(s) XR DEXA BONE DENSITY W/WO CASI EXAM: XR DEXA BONE DENSITY W/WO CASI CLINICAL HISTORY: osteoporosis screening,asymptomatic menopausal state,z78.0 TECHNIQUE: COMPARISON: No exams were available for comparison FINDINGS: Lateral Spine Image: Unremarkable. No compression deformities identified. Left hip: Total T-Score: 1.0 Total Z-Score: 1.6 T- and Z-scores: Within normal limits. Lumbar Spine: Total T-Score: -1.1 Total Z-Score: -0.1 T- and Z-scores: Findings are consistent with osteopenia. IMPRESSION: No evidence of osteoporosis.
== END 2024-11-25 01:41 ==
LOC: DI 01:22
PROVIDERS: PCP Nurse Practitioner Family; Visit Provider Nurse Practitioner Family
DX: Z78.0 Asymptomatic menopausal state (principal); Z13.820 Encounter for screening for osteoporosis
CPT/HCPCS: 77080

== ENCOUNTER 2024-12-09 15:05 | Outpatient (CLI) | payer OTHER, SELFPAY ==
--- NOTE | 2024-12-09 | DI.US_ITS ---
Exam(s) US LOWER EXTREMITY VENOUS LT EXAM: US LOWER EXTREMITY VENOUS LT CLINICAL HISTORY: PAIN LT CALF, M79.662 TECHNIQUE: Left lower extremity venous ultrasound performed using grayscale, color-flow, and spectral Doppler analysis. COMPARISON: No exams were available for comparison FINDINGS: The left common femoral, femoral and popliteal veins demonstrate normal compressibility, augmentation, and color Doppler. The posterior tibial and peroneal veins are patent. The saphenofemoral junction is unremarkable. There is no evidence of a Green cyst. The soft tissues are unremarkable. IMPRESSION: No evidence of a left lower extremity DVT. DATA REPOSITORY:
--- NOTE | 2024-12-09 15:22 | DI.RAD_ITS ---
Exam(s) XR KNEE LT 3V AP,LAT,LAUREN EXAM: XR KNEE LT 3V AP,LAT,LAUREN CLINICAL HISTORY: ACUTE PAIN LT KNEE, M25.562. TECHNIQUE: 2D digital imaging was performed of the left knee. Three images were obtained. AP, lateral and PA tunnel views were obtained. COMPARISON: No exams were available for comparison FINDINGS: BONES: No acute fracture is present. No bony destructive lesion is seen. JOINTS: There are degenerative changes seen in the knee characterized by osteophytes, particularly at the lateral femoral tibial and patellofemoral joint. No joint effusion is seen. SOFT TISSUE: Normal. IMPRESSION: Mild degenerative changes seen in the left knee. DATA REPOSITORY: RADIATION DOSE DELIVERED:
== END 2024-12-09 15:25 ==
LOC: DI 15:16
PROVIDERS: PCP Nurse Practitioner Family; Visit Provider Physician Assistant Medical
DX: M17.12 Unilateral primary osteoarthritis, left knee (principal)
CPT/HCPCS: 73562; 93971

== ENCOUNTER 2024-12-09 18:45 | Outpatient (REF) | payer OTHER, SELFPAY ==
[2024-12-09 20:46] LABS: Abs Immature Grans 0.01 10^3/uL (0.0-0.06); HCT 43.4 % (36.0-46.0); HGB 15.0 g/dL (11.2-15.7); Immature Grans % 0.1 %; MCH 30.7 pg (27.0-33.0); MCHC 34.6 % (32.0-36.0); MCV 89 fL (80-95); MPV 9.1 fL (8.0-11.0); Platelet Count 303 10^3/uL (130-400); RBC 4.89 10^6/uL (3.93-5.22); RDW 12.1 % (11.7-14.6); RDW-SD 39.0 fL; WBC 7.01 10^3/uL (4.4-10.8)
[2024-12-09 20:58] LABS: ALT 37 U/L (14-59); AST 24 U/L (15-37); Albumin 4.1 g/dL (3.4-5.0); Alkaline Phosphatase 97 U/L (46-116); Anion Gap 5.6 mmol/L (3-11); BUN 15 mg/dL (7-18); Bilirubin, Total 0.5 mg/dL (0.2-1.0); CO2 31.4 mmol/L (21.0-32.0); Calcium 9.5 mg/dL (8.5-10.1); Chloride 101 mmol/L (98-107); Estimated GFR 88.05 (mL/min/1.73m2); Glucose 91 mg/dL (74-106); Potassium 4.5 mmol/L (3.5-5.1); Sodium 138 mmol/L (136-145); Total Protein 7.6 g/dL (6.4-8.2)
[2024-12-13 09:23] LABS: Lyme Ab w Rflx to Lyme Confirm Negative (Negative)
== END 2024-12-09 18:46 | disposition home or self-care (01) ==
LOC: LBN 18:45
PROVIDERS: PCP Nurse Practitioner Family; Visit Provider Physician Assistant Medical
DX: M25.562 Pain in left knee (principal); M79.662 Pain in left lower leg
CPT/HCPCS: 80053; 85025; 86618

== ENCOUNTER 2025-01-06 10:57 | Outpatient (CLI) | payer OTHER, SELFPAY ==
--- NOTE | 2025-01-06 11:34 | DI.RAD_ITS ---
Exam(s) XR LUMBAR SPINE COMPLETE EXAM: XR LUMBAR SPINE COMPLETE CLINICAL HISTORY: lumbar radiculopathy, M54.16. TECHNIQUE: 2D digital imaging was performed. Five views. COMPARISON: CR XR DEXA BONE DENSITY W/WO CASI from 11/25/2024 FINDINGS: BONES: No fracture or destructive lesion. Vertebral body heights are maintained. No significant endplate osteophytes. Facet hypertrophy identified is identified from L3-4 through L5-S1.. DISKS: There is mild narrowing of the L5-S1 disc space. Intervertebral disc spaces are maintained. ALIGNMENT: Slight spondylolisthesis at L4-5 secondary to facet degenerative changes. SOFT TISSUE: Normal. IMPRESSION: Degenerative changes of the facet joints at L4-5 and L5-S1. Mild degenerative disc changes at L5-S1. DATA REPOSITORY: RADIATION DOSE DELIVERED:
== END 2025-01-06 11:17 ==
LOC: DI 10:58
PROVIDERS: PCP Nurse Practitioner Family; Visit Provider Nurse Practitioner Family
DX: M54.16 Radiculopathy, lumbar region (principal); M51.360 Other intervertebral disc degeneration, lumbar region with discogenic back pain only
CPT/HCPCS: 72110

== ENCOUNTER 2025-01-27 01:31 | Outpatient (CLI) | payer OTHER, SELFPAY ==
--- NOTE | 2025-01-27 14:40 | DI.MRI_ITS ---
Exam(s) MR LUMBAR SPINE WO EXAM: MR LUMBAR SPINE WO CLINICAL HISTORY: lumbar radiculopathy, herniated disc? M54.16. TECHNIQUE: Multiplanar multisequence MRI of the Lumbar spine was performed. COMPARISON: CR XR LUMBAR SPINE COMPLETE from 01/06/2025 FINDINGS: Bones: The last intervertebral disc space is designated the L5/S1 level for the numbering purpose of this examination. The vertebral body heights are well maintained. Alignment is satisfactory. There are hemangioma seen in the T12 and L3 vertebral bodies. There are mild degenerative endplate signal changes present. Cord: It is of normal size and signal intensity. T12-L1: No disc herniations or bulges are present. No central spinal canal or neural foraminal stenosis. L1-2: No disc herniations or bulges are present. No central spinal canal or neural foraminal stenosis. L2-3: No disc herniations or bulges are present. No central spinal canal or neural foraminal stenosis. L3-4: No disc herniations or bulges are present. There are degenerative changes of the facets present.There is no significant central spinal canal or neural foraminal stenosis present. L4-5: No disc herniations or bulges are present. There are degenerative changes of the facets present.There is no significant central spinal canal or neural foraminal stenosis present. L5-S1: There is a small left paracentral disc herniation with extension into the left neural foramen. There is no nerve root compression or significant neural foraminal stenosis which results. There is no central spinal canal stenosis or right neural foraminal stenosis. There are mild degenerative changes of the facets present. Soft tissues: The visualized SI joints and sacrum are well maintained. The paraspinal soft tissues are unremarkable. IMPRESSION: 1. Small left paracentral disc herniation with extension into the left neural foramen at L5-S1. No nerve root compression, neural foraminal stenosis or central spinal canal stenosis results. 2. Degenerative changes seen at L3-4, L4-5 and L5-S1, but there is no significant central spinal canal or neural foraminal stenosis seen. DATA REPOSITORY:
== END 2025-01-27 01:51 ==
LOC: DI 01:31
PROVIDERS: PCP Nurse Practitioner Family; Visit Provider Nurse Practitioner Family
DX: M54.16 Radiculopathy, lumbar region (principal)
CPT/HCPCS: 72148

== ENCOUNTER 2025-03-08 08:41 | Outpatient (CLI) | payer OTHER, SELFPAY ==
--- NOTE | 2025-03-08 09:20 | PDOC.PAIN ---
Date of service: 03/08/25 Time of Service: 09:39 Pain Managment Procedure Note Procedure Note Procedure Note: Intra-articular Knee Injection of Steroid US guided Location: Left Knee Pre-procedure Diagnosis: M25.562 Pain in left knee , M17.12 Unliateral primary osteoarthritis, left knee Post-procedure Diagnosis: The same as above Sedation: none SURGEON: Tao De La Torre MD ANESTHESIA: Local. ESTIMATED BLOOD LOSS: None. COMPLICATIONS: None. INDICATIONS: PAIN DESCRIPTION OF PROCEDURE: Informed consent was obtained. The patient was taken to the procedure room and placed in supine position. Appropriate procedural time out was taken. Vital signs in the preoperative setting were noted to be stable. The area of interest was prepped and draped in the usual sterile fashion using alcohol swabs. 1% lidocaine was used to anesthetize the skin. The area of interest was identified by manual palpation. Utilizing high-frequency probe ultrasound guidance the suprapatellar recess between the iliotibial band and the vastus lateralis was identified. At which point, a 25-gauge 1.5-inch needle was used to inject local anesthetic in the skin. A 21G blunt-tipped hyperechoic needle was advanced under ultrasound into bursa sac. After negative aspiration, an injectate of 4 milliliters of 0.5% bupivacaine mixed with 1 milliliter of 40 milligrams per milliliter of methylprednisolone was slowly administered. All needles were removed intact. The patient tolerated the procedure well. COMMENT: Patient will follow-up as needed. She also has some radicular symptoms and lumbar epidural steroid injection is an option. PAIN: PRE-PROCEDURE 10 POST PROCEDURE 07/12 DISPOSITION: 1. The patient was discharged home with written instructions in stable condition. 2. I will see the patient as needed if there are any questions or concerns. Coding Conscious Sedation used for procedure: No CPT Codes: Inj,Bursa/Tend w/US Large; Iliopsoas Bursa Inject w/US*BILA* - [id number] ([id number]) Additional Codes: Date of Service (04643) Diagnoses: M25.562 Pain in left knee , M17.12 Unliateral primary osteoarthritis, left knee
[2025-03-08 09:29] VITALS: PULSE 89; O2SAT 96
[2025-03-08 09:30] VITALS: PULSE 93; O2SAT 98
[2025-03-08] MEDS: Bupivacaine 0.5% Pres-Free 10 ML VIAL IJ (09:43)
[2025-03-08] MEDS: methylPREDNISolone ACETATE 40 MG/ML VIAL IJ (09:44)
[2025-03-08] MEDS: Nerve Block Tray 1 EACH MC (09:44)
== END 2025-03-08 08:42 | disposition home or self-care (01) ==
LOC: PC 08:42
PROVIDERS: PCP Nurse Practitioner Family; Visit Provider Anesthesiology Pain Medicine
DX: M25.562 Pain in left knee (principal); M17.12 Unilateral primary osteoarthritis, left knee
CPT/HCPCS: 20611; J0665; J1010